=== PATIENT | female | born 1930 | race Caucasian/White ===

== ENCOUNTER 2018-06-08 05:57 | Emergency (ER) | payer MEDICARE ==
[2018-06-08] MEDS ORDERED: DIAZEPAM 5 MG/ML 2 ML INJ IVP STA (07:18)
[2018-06-08] MEDS ORDERED: KETOROLAC 60 MG/2 ML VIAL IVP STA (07:18)
--- NOTE | 2018-06-08 07:26 | ED ---
General Adult HPI - General Chief complaint: Back Pain/Injury Stated complaint: UPPER BACK PAIN Time Seen by Provider: 06/08/18 06:55 Source: patient, family, RN notes reviewed Mode of arrival: ambulatory Limitations: no limitations - History of Present Illness Initial comments: This is an 79-year-old female presents emergency Department complaining of trapezius pain bilaterally. Patient states it started about 2 days ago and has gotten progressively worse. Patient states it hurts to palpate and it does feel better with some lidocaine patch. Patient states flexing her neck or turning her neck increases the pain. Patient denies any numbness or weakness. Patient denies any recent injury or trauma. Patient denies any lower extremity pain or numbness. Patient denies any recent fever chills. Patient denies any chest pain difficult breathing or shortness of breath. Patient denies any palpitations. - Related Data Home Medications Medication Instructions Recorded Confirmed Warfarin Sodium 4 mg PO SUMOWETHFRSA 06/20/17 06/08/18 Levothyroxine Sodium [Levoxyl] 75 mcg PO DAILY 06/08/18 06/08/18 Warfarin Sodium [Coumadin] 2 mg PO TU 06/08/18 06/08/18 Previous Rx's Medication Instructions Recorded Cyclobenzaprine [Flexeril] 5 mg PO BID #10 tablet 06/08/18 Ibuprofen [Motrin] 400 mg PO Q8HR #21 tab 06/08/18 Allergies Allergy/AdvReac Type Severity Reaction Status Date / Time acetaminophen [From Vicodin] Allergy Rash/Hives Verified 06/08/18 07:17 hydrocodone [From Vicodin] Allergy Rash/Hives Verified 06/08/18 07:17 Review of Systems ROS Statement: Those systems with pertinent positive or pertinent negative responses have been documented in the HPI. ROS Other: All systems not noted in ROS Statement are negative. Past Medical History Past Medical History: Thyroid Disorder Additional Past Medical History / Comment(s): "leaky heart valve" History of Any Multi-Drug Resistant Organisms: None Reported Past Surgical History: Orthopedic Surgery Additional Past Surgical History / Comment(s): (R) hip surgery. (L) foot surgery Past Psychological History: No Psychological Hx Reported Smoking Status: Never smoker Past Alcohol Use History: None Reported Past Drug Use History: None Reported General Exam - General Exam Comments Initial Comments: GENERAL: Patient is well-developed and well-nourished. Patient is nontoxic and well- hydrated and is in mild distress. ENT: Neck is soft and supple. No significant lymphadenopathy is noted. Oropharynx is clear. Moist mucous membranes. Patient's trapezius muscles are tender and pain is increased with flexion or turning of the neck. EYES: The sclera were anicteric and conjunctiva were pink and moist. Extraocular movements were intact and pupils were equal round and reactive to light. Eyelids were unremarkable. PULMONARY: Unlabored respirations. Good breath sounds bilaterally. No audible rales rhonchi or wheezing was noted. CARDIOVASCULAR: There is a regular rate and rhythm without any murmurs gallops or rubs. ABDOMEN: Soft and nontender with normal bowel sounds. No palpable organomegaly was noted. There is no palpable pulsatile mass. SKIN: Skin is clear with no lesions or rashes and otherwise unremarkable. NEUROLOGIC: Patient is alert and oriented x3. Cranial nerves II through XII are grossly intact. Motor and sensory are also intact. Normal speech, volume and content. Symmetrical smile. MUSCULOSKELETAL: Patient has tenderness bilateral trapezius muscles. Pain is increased with movement of the neck. Patient has no numbness or weakness in the arms. LYMPHATICS: No significant lymphadenopathy is noted PSYCHIATRIC: Normal psychiatric evaluation. Limitations: no limitations Course Vital Signs 06/08/18 06/08/18 05:58 07:34 Temperature 98.4 F Pulse Rate 93 100 Respiratory 20 18 Rate Blood Pressure 146/83 160/92 O2 Sat by Pulse 99 93 L Oximetry Medical Decision Making - Medical Decision Making EKG was ordered by nursing prior to my seeing the patient. EKG shows normal sinus rhythm at 92 bpm [place] interval 140 QRS is 94 QT interval 356 QTC is 440. Patient's EKG shows no ST segment elevation or depression or T wave abnormalities are noted. After the patient received a little Valium and Toradol she felt considerably better was able to move around with only very minimal pain. Patient continued no numbness weakness. Patient had no other symptoms at this time. Patient agrees she'll follow-up with her primary medical care doctor. Disposition Clinical Impression: Trapezius muscle spasm Disposition: HOME SELF-CARE Condition: Good Instructions: Muscle Spasm (ED) Prescriptions: Cyclobenzaprine [Flexeril] 5 mg PO BID #10 tablet Ibuprofen [Motrin] 400 mg PO Q8HR #21 tab Is patient prescribed a controlled substance at d/c from ED?: No Referrals: Clau Tracey MD [Primary Care Provider] - 1-2 days Time of Disposition: 08:43
[2018-06-08 07:35] VITALS: RESP 18
[2018-06-08 08:40] VITALS: BP 140/67; PULSE 90
[2018-06-08 08:58] VITALS: TEMP 97.6
== END 2018-06-08 08:53 | disposition home or self-care (01) ==
LOC: EC 05:57
DX: M62.830 Muscle spasm of back (principal); E07.9 Disorder of thyroid, unspecified; Z88.5 Allergy status to narcotic agent; Z88.6 Allergy status to analgesic agent; Z79.01 Long term (current) use of anticoagulants; Z79.899 Other long term (current) drug therapy; Z86.79 Personal history of other diseases of the circulatory system
CPT/HCPCS: 99283; 96374; 96375; J3360; J1885